=== PATIENT | male | born 1985 | race African-American/Black ===

== ENCOUNTER 2016-12-10 02:40 | Emergency (ER) | payer OTHER ==
[~2016-12-10] VITALS: Ht 182.9 cm; Wt 95.5 kg
[2016-12-10] MEDS ORDERED: INSU100V SQ (02:47)
[2016-12-10] MEDS ORDERED: INSU100V12 SQ (02:47)
[2016-12-10] MEDS ORDERED: HYPERTENSION MED PO (02:47)
[2016-12-10] MEDS ORDERED: ROSU10 PO (02:47)
[2016-12-10 03:22] LABS: BASOPHILS % (AUTO) 1.1 % (0.0-2.0); EOSINOPHILS % (AUTO) 3.5 % (1.0-6.0); HEMATOCRIT 34.7 % (41-53); HEMOGLOBIN 11.2 g/dL (13.5-17.5); LYMPHOCYTES % (AUTO) 38.9 % (22.0-44.0); MEAN CORPUSCULAR HEMOGLOBIN 27.9 pg (26.0-34.0); MEAN CORPUSCULAR HGB CONC 32.3 G/dL (31.0-37.0); MEAN CORPUSCULAR VOLUME 86 fL (80-100); MONOCYTES # (AUTO) 0.3 K/uL (0.1-1.0); MONOCYTES % (AUTO) 6.2 % (2.0-9.0); NEUTROPHILS # (AUTO) 2.5 K/uL (1.8-7.7); NEUTROPHILS % (AUTO) 50.3 % (40.0-70.0); PLATELET COUNT (AUTO) 305 K/uL (150-450); RED BLOOD CELL COUNT(AUTO) 4.02 MIL/uL (4.50-5.90); RED CELL DISTRIBUTION WIDTH 13.2 % (11.5-14.5); WHITE BLOOD COUNT (AUTO) 5.1 K/uL (4.5-11.0)
[2016-12-10] MEDS ORDERED: DEXTROSE 50%-WATER 25 GM/50 ML SYRINGE IVP ONE (03:30)
[2016-12-10 03:31] LABS: CREATININE 3.2 mg/dL (0.60-1.30)
[2016-12-10 03:37] LABS: ALBUMIN 3.6 g/dL (3.4-5.0); BILIRUBIN,TOTAL 0.2 mg/dL (0.1-1.0); TOTAL PROTEIN, SERUM 7.8 g/dL (6.4-8.2)
[2016-12-10 03:52] LABS: GLUCOSE,POINT OF CARE 127 MG/DL (70-110)
[2016-12-10 04:55] VITALS: BP 152/96
[2016-12-10 04:56] LABS: GLUCOSE COMMENT 1 Doctor Notified; GLUCOSE,POINT OF CARE 146 MG/DL (70-110)
[2016-12-10 05:25] LABS: APPEARANCE,URINE CLEAR (CLEAR); GLUCOSE, URINE (UA) 250 mg/dL (NEGATIVE); KETONES,URINE NEGATIVE (NEGATIVE); LEUKOCYTE ESTERASE ,URINE NEGATIVE (NEGATIVE); OCCULT BLOOD,URINE LARGE (NEGATIVE); PH,URINE 5.5 (5.0-8.0); PROTEIN,URINE SEE CONFIRM (NEGATIVE)
[2016-12-10 05:26] LABS: ADD UA MICROSCOPIC YES
[2016-12-10 05:45] LABS: SULFOSALICYLIC ACID,URINE 2+ (Negative)
[2016-12-10 05:46] LABS: SQUAMOUS EPITHELIAL CELL,UR Few /LPF (None Seen); URINALYSIS COMMENT Moderate Sperm seen.; WBC,URINE 0-2 /HPF (0-5)
== END 2016-12-10 05:37 | disposition home or self-care (01) ==
LOC: EMS 02:41
DX: E09.649 Drug or chemical induced diabetes mellitus with hypoglycemia without coma (principal); T38.3X5A Adverse effect of insulin and oral hypoglycemic [antidiabetic] drugs, initial encounter; S00.532A Contusion of oral cavity, initial encounter; N28.9 Disorder of kidney and ureter, unspecified; E78.00 Pure hypercholesterolemia, unspecified; I10 Essential (primary) hypertension; Z79.4 Long term (current) use of insulin; W06.XXXA Fall from bed, initial encounter; Y93.89 Activity, other specified; Y92.89 Other specified places as the place of occurrence of the external cause; Y99.8 Other external cause status
CPT/HCPCS: 82962; 93005; 96374; 99285